=== PATIENT | male | born 1940 | race Asian ===

== ENCOUNTER 2023-10-01 21:54 | Emergency (ER) | payer OTHER ==
[~2023-10-01] VITALS: Ht 160 cm; Wt 68.0 kg
[2023-10-01] MEDS ORDERED: NITROGLYCERIN OINT 1 GM PACKET TP ONE (22:25)
[2023-10-01] MEDS: NITROGLYCERIN OINT 1 GM PACKET TP ONE (22:25)
[2023-10-01] MEDS: ASPIRIN 81 MG TAB.CHEW PO ONE (22:35)
[2023-10-01 22:51] LABS: CALCIUM 8.5 mg/dL (8.5-10.1); CARBON DIOXIDE 24 mmol/L (21-32); CHLORIDE 110 mmol/L (98-107); CREATININE 1.4 mg/dL (0.6-1.3); GLUCOSE 201 mg/dL (74-106); POTASSIUM 3.8 mmol/L (3.5-5.1); SODIUM SERUM 143 mmol/L (136-145); UREA NITROGEN, BLOOD 23 mg/dL (7-18)
[2023-10-01 22:55] LABS: DIFFERENTIAL COMMENT 0; HEMATOCRIT 42.1 % (36.7-47.1); HEMOGLOBIN 13.6 g/dL (12.5-16.3); LYMPHOCYTES # (AUTO) 0.7 K/uL (0.8-4.8); LYMPHOCYTES % (AUTO) 10.8 % (20.5-51.5); MEAN CORPUSCULAR HEMOGLOBIN 24.9 uug (23.8-33.4); MEAN CORPUSCULAR HGB CONC 32 g/dL (32.5-36.3); MEAN CORPUSCULAR VOLUME 76.9 fL (73.0-96.2); MONOCYTES # (AUTO) 0.1 K/uL (0.1-1.30); NEUTROPHILS # (AUTO) 5.8 K/uL (1.8-8.9); NEUTROPHILS % (AUTO) 88.2 % (38.5-71.5); PLATELET COUNT (AUTO) 199 K/uL (152-348); RED BLOOD CELL COUNT(AUTO) 5.47 MIL/uL (4.06-5.63); RED CELL DISTRIBUTION WIDTH 16.1 % (12.1-16.2); WHITE BLOOD COUNT (AUTO) 6.6 K/uL (3.6-10.2)
[2023-10-01] MEDS ORDERED: HYDROMORPHONE 1 MG/1 ML DISP.SYRIN IV ONE (23:00)
[2023-10-01 23:04] LABS: ALANINE AMINOTRANSFERASE 23 U/L (16-63); ALBUMIN 2.9 g/dL (3.4-5.0); ALKALINE PHOSPHATASE 58 U/L (50-136); ASPARTATE AMINOTRANSFERASE 13 U/L (15-37); BILIRUBIN,DIRECT 0.1 mg/dL (0.0-0.2); BILIRUBIN,TOTAL 0.4 mg/dL (0.2-1.0); NT-PRO BNP 1695 pg/mL (0-125); TOTAL PROTEIN, SERUM 7.4 g/dL (6.4-8.2)
[2023-10-01] MEDS ORDERED: FUROSEMIDE 20 MG/2 ML VIAL ONE (23:34)
[2023-10-01] MEDS ORDERED: NITROGLYCERIN 0.4 MG/TAB BOTTLE SL ONE (23:34)
[2023-10-01] MEDS ORDERED: CLONIDINE HCL 0.1 MG TABLET ONE (23:35)
[2023-10-01 23:40] VITALS: BP 189/83
[2023-10-01] MEDS: FUROSEMIDE 20 MG/2 ML VIAL IV ONE (23:40)
[2023-10-01] MEDS: NITROGLYCERIN 0.4 MG/TAB BOTTLE SL ONE (23:40)
[2023-10-01] MEDS: CLONIDINE HCL 0.1 MG TABLET PO ONE (23:40)
[2023-10-01] MEDS ORDERED: ENOXAPARIN SODIUM 80 MG/0.8 ML DISP.SYRIN SQ ONE (23:50)
[2023-10-01] MEDS: ENOXAPARIN SODIUM 80 MG/0.8 ML DISP.SYRIN SQ ONE (23:54)
[2023-10-02 02:33] VITALS: O2SAT 97
== END 2023-10-02 04:00 | disposition short-term general hospital (02) ==
LOC: ER 21:56
DX: I21.4 Non-ST elevation (NSTEMI) myocardial infarction (principal); J81.1 Chronic pulmonary edema; R07.89 Other chest pain; R94.31 Abnormal electrocardiogram [ECG] [EKG]; E78.5 Hyperlipidemia, unspecified; I10 Essential (primary) hypertension
CPT/HCPCS: 99285; 96374; 71045; 80076; 80048; 83880; 85025; 85379; 84484 ×3; 36415 ×2; 93005 ×2; 96372; J1650; J1940; A4606; A4663